=== PATIENT | female | born 1950 | race Caucasian/White ===

== ENCOUNTER 2023-02-18 07:27 | Inpatient (IN) ==
[2023-02-18] MEDS ORDERED: SODIUM CHLORIDE 0.9% 1,000 ML IV STA (07:38)
[2023-02-18] MEDS ORDERED: MoRPHine SULFATE 4 MG/ML 1 ML CARP\\VIAL IV STA (07:44)
[2023-02-18] MEDS ORDERED: ONDANSETRON INJ 2 MG/ML 2 ML VIAL IV STA (07:44)
--- NOTE | 2023-02-18 07:46 | Emergency Department Note ---
Impression & Plan Acute colitis ADMIT ED Provider Note HPI: History obtained from patient. The patient is a 72-year-old female with history of hypertension, presents emergency department chief complaint of abdominal pain, vomiting, and blood per rectum. Patient states that her symptoms began yesterday evening. Patient is visiting from out of town for the [employer] football game today. Patient states that last evening when she was sleeping in a camper she was having difficulty sleeping secondary to abdominal pain. She had an episode of bleeding per rectum at about 2 AM. Patient states she did have multiple episodes of vomiting as well. On arrival here to the ED the patient is hemodynamically stable, she appears to be in mild distress secondary to abdominal pain, she is otherwise alert and saturating well on room air. ROS: - Per HPI Differential Diagnosis: Acute colitis, diverticulitis flare, small bowel obstruction, ischemic colitis, acute appendicitis, perforated viscus, intra- abdominal abscess, lower GI hemorrhage, amongst other potential pathologies. *Outpatient medications and allergy history reviewed. 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 Lab work shows no leukocytosis, hemoglobin is normal, platelet count is normal, CMP does not show any critical findings, no evidence of acute kidney injury. Troponin is negative x1. EKG per my interpretation shows normal sinus rhythm without any acute ischemic changes. Urinalysis does not show any evidence of obvious infection. Patient denies any dysuria. CT imaging of the abdomen pelvis shows nonspecific inflammation of the transverse colon consistent with an acute colitis, infectious versus inflammatory and given location difficult to rule out ischemic colitis, per interpreting radiologist. Rectal examination performed by myself at the bedside with female RN does not show any obvious hemorrhage grossly, occult stool testing is positive. I discussed the patient's presentation with on-call general surgery, Dr. Christopher, who did evaluate the patient at the bedside. At this time he is in agreement to consult and admit the patient to the medicine service for IV antibiotics and observation until symptomatic improvement. I discussed this with the patient and her friend at the bedside. Patient is in agreement for admission at this time. Case was discussed with the on-call hospitalist, Dr. José, and the patient was placed for admission in stable condition. Consultants/Discussions held with other healthcare providers: -General surgery, Dr. Christopher -Hospitalist, Dr. José Disposition discussion held by myself with: -Patient Diagnosis: 1. Acute colitis 2. Abdominal pain, acute 3. Blood per rectum/occult positive stool Disposition: Admission Tarik Connor DO Emergency Medicine Past Med/Surg History Medical History (Updated 02/18/23 @ 11:55 by Tarik Connor DO) Personal history of DVT (deep vein thrombosis) Hypertension Arthritis Social History Feels Safe at Home: Yes Home Meds Home Medications Medication Instructions Recorded Confirmed celecoxib 200 mg capsule 200 mg PO DAILY 02/18/23 02/18/23 dicyclomine 10 mg capsule 10 mg PO QID PRN Abdominal Cramping 02/18/23 02/18/23 lisinopril 20 20 - 25 tab PO DAILY 02/18/23 02/18/23 mg-hydrochlorothiazide 25 mg tablet Results & Data (ED) Vital Signs Vital Signs - 24 hr 02/18/23 07:32 02/18/23 08:00 02/18/23 08:13 Temperature 36.4 C L Temperature Source Temporal Artery Scan Pulse Rate 82 72 62 Pulse Rate [Apical] Pulse Rhythm [Apical] Pulse Strength [Apical] Respiratory Rate 16 16 Respiratory Effort / Characteristics Non-Labored Respiratory Depth Normal Respiratory Pattern Blood Pressure 164/85 H Blood Pressure [Right Arm] Blood Pressure Mean 111 Blood Pressure Mean [Right Arm] Blood Pressure Position [Right Arm] Pulse Oximetry 96 96 Oxygen Delivery Method Room Air Room Air Sepsis Recent Fever Within 48 Hours No Sepsis New/Unexplained Change in Mental Status No Sepsis Action Taken by Nursing No Action Required 02/18/23 09:19 02/18/23 10:36 02/18/23 11:47 Temperature 36.8 C Temperature Source Oral Pulse Rate Pulse Rate [Apical] 75 81 72 Pulse Rhythm [Apical] Regular Pulse Strength [Apical] Normal Respiratory Rate 18 18 17 Respiratory Effort / Characteristics Non-Labored Spontaneous Non-Labored Spontaneous Non-Labored Spontaneous Respiratory Depth Normal Normal Normal Respiratory Pattern Regular Regular Blood Pressure Blood Pressure [Right Arm] 156/79 H 159/117 H 149/79 H Blood Pressure Mean Blood Pressure Mean [Right Arm] 104 131 102 Blood Pressure Position [Right Arm] Semi-fowlers Semi-fowlers Semi-fowlers Pulse Oximetry 99 96 96 Oxygen Delivery Method Room Air Room Air Room Air Sepsis Recent Fever Within 48 Hours Sepsis New/Unexplained Change in Mental Status Sepsis Action Taken by Nursing Laboratory Data 02/18/23 08:07 02/18/23 08:07 Lab Results 02/18/23 02/18/23 Range/Units 08:07 08:29 WBC 10.25 (4.8-10.8) K/ul RBC 4.45 (4.20-5.40) M/uL Hgb 13.6 (12.0-16.0) g/dl Hct 39.2 (37.0-47.0) % MCV 88.1 (80.0-100.0) fL MCH 30.6 (25.0-34.0) pg MCHC 34.7 (32.0-36.0) g/dL RDW Std Deviation 44.6 (36.4-46.3) fL RDW Coeff of Liz 13.8 (11.5-14.5) % Plt Count 167 (130-400) K/uL MPV 11.1 (9.4-12.4) fL Immature Gran % (Auto) 0.4 % Neut % (Auto) 83.3 % Lymph % (Auto) 9.9 % [place] % (Auto) 5.3 % Eos % (Auto) 0.8 % Baso % (Auto) 0.3 % Neut # (Auto) 8.55 H (1.40-6.50) K/uL Lymph # (Auto) 1.01 L (1.20-3.40) K/uL [place] # (Auto) 0.54 (0.11-0.59) K/uL Eos # (Auto) 0.08 (0.00-0.50) K/uL Baso # (Auto) 0.03 (0.00-0.20) K/uL Immature Gran # (Auto) 0.04 (0.01-0.20) K/uL PT 10.9 (9.0-12.0) Seconds INR 1.0 (0.9-1.1) Sodium 136 (136-145) mmol/L Potassium 3.7 (3.5-5.1) mmol/L Chloride 102 (98-107) mmol/L Carbon Dioxide 27 (21-32) mmol/L Anion Gap 7 (3-11) BUN 17 (6-23) mg/dl Creatinine 0.70 (0.6-1.2) mg/dl Est Cr Clr Drug Dosing 78.8 ml/min Est GFR ( Amer) 98.9 ml/min Est GFR (Non-Af Amer) 85.4 ml/min BUN/Creatinine Ratio 24.3 H (10-20) Glucose 126 H (70-99(Fasting)) mg/dl Calcium 9.6 (8.6-10.3) mg/dl Total Bilirubin 0.6 (0.2-1.0) mg/dl AST 17 (13-39) U/L ALT 13 (7-52) U/L Alkaline Phosphatase 55 (34-104) U/L Troponin I High Sens 3.9 (0-14) pg/ml Total Protein 6.8 (6.0-8.3) gm/dl Albumin 4.4 (3.4-5.0) gm/dl Globulin 2.4 L (2.5-4.0) gm/dl Albumin/Globulin Ratio 1.8 (0.9-2) Lipase 19 (11-82) U/L Urine Color Yellow Urine Appearance Clear (Clear) Urine pH 5.0 (4.5-7.5) Ur Specific [place] 1.020 (1.000-1.030) Urine Protein Negative (Negative) Urine Glucose (UA) Negative (Negative) Urine Ketones Negative (Negative) Urine Blood Trace H (Negative) Urine Nitrite Negative (Negative) Urine Bilirubin Negative (Negative) Urine Urobilinogen Negative (Negative) Ur Leukocyte Esterase 1+ H (Negative) Urine WBC (Auto) 1-5 (0-5) /hpf Urine RBC (Auto) 0-4 (0-4) /hpf U Hyaline Cast (Auto) 1-5 (0-5) /lpf U Epithel Cells (Auto) 20-30 H (0-5) /lpf Urine Bacteria (Auto) Negative (Negative) Blood Type A Positive Antibody Screen NEGATIVE Administered Medications Discontinued Medications Sodium Chloride (Nss) 1,000 mls @ 999 mls/hr IV .Q1H1M STA Stop: 02/18/23 08:38 Last Infusion: 02/18/23 09:11 Dose: Infused Documented By: Admin: 02/18/23 08:10 Dose: 999 mls/hr Documented By: STAN Sodium Chloride (Nss) 1,000 mls @ 999 mls/hr IV .Q1H1M ONE Stop: 02/18/23 11:18 Last Infusion: 02/18/23 11:37 Dose: Infused Documented By: Admin: 02/18/23 10:39 Dose: 999 mls/hr Documented By: STAN Metronidazole (Flagyl) 500 mg in 100 mls @ 100 mls/hr IV NOW STA; Protocol Stop: 02/18/23 11:50 Last Admin: 02/18/23 11:37 Dose: 100 mls/hr Documented By: MADDISON Ioversol (Optiray 320 100ml) 93 ml IV ONCE ONE Stop: 02/18/23 09:12 Last Admin: 02/18/23 09:11 Dose: 93 ml Documented By: GLENN Morphine Sulfate (Morphine Sulfate 4 Mg/Ml 1 Ml Carp\Vial) 4 mg IV NOW STA Stop: 02/18/23 07:45 Last Admin: 02/18/23 08:17 Dose: 4 mg Documented By: STAN Ondansetron HCl (Ondansetron Inj 2 Mg/Ml 2 Ml Vial) 4 mg IV NOW STA Stop: 02/18/23 07:45 Last Admin: 02/18/23 08:17 Dose: 4 mg Documented By: STAN Imaging Data Radiologist's Impression: Abdomen/Pelvis CT 02/18/23 07:45 CT OF THE ABDOMEN AND PELVIS WITH CONTRAST CLINICAL HISTORY: Generalized abdominal pain, diarrhea, rectal bleed. COMPARISON STUDY: None. TECHNIQUE: Following IV administration of 93 mL of Optiray, axial images of the abdomen and pelvis were obtained from the lung bases to the proximal femurs. Images were reviewed in the axial, sagittal, and coronal planes. IV contrast was administered without complication. Automated exposure control was utilized for the study. A dose lowering technique was utilized adhering to the principles of ALARA. CT DOSE: 1266.58 mGy.cm FINDINGS: Lung bases are unremarkable. No pneumatosis, free air or portal venous gas is present. The liver, spleen, adrenal glands, kidneys and pancreas are unremarkable. There is no biliary or pancreatic ductal dilatation. No hydronephrosis. No peripancreatic or pericholecystic infiltration is present. The appendix is normal. There is colonic diverticulosis without evidence for acute diverticulitis. Moderate circumferential wall thickening of the mid to distal transverse colon, the splenic flexure and descending colon is noted. There is pericolonic stranding and fluid. No free air or abscess is present. Major vasculature is patent. There is mild plaque within the abdominal aorta. There are no fluid collections. There is no lymphadenopathy. IMPRESSION: 1. Moderate circumferential wall thickening with pericolonic stranding and fluid of the mid to distal transverse colon, the splenic flexure and descending colon. No free air or abscess. This is consistent with a colitis and the distribution raises the possibility of ischemic colitis. An infectious or inflammatory etiology could appear similar. 2. Colonic diverticulosis. No evidence for acute diverticulitis. ACT 112: Negative or not required by law. Electronically signed by: Santino Celeste M.D. 02/18/2023 9:30 AM Discharge Plan Visit Data Chief Complaint: Abdominal Pain Stated Complaint: ABD PAIN ED Provider: Tarik Connor Discharge Problem: Acute colitis Forms Stand Alone Forms: [facility] Prescriptions Prescriptions: No Action celecoxib 200 mg capsule 200 mg PO DAILY lisinopril-hydrochlorothiazide 20-25 mg tablet 20 - 25 tab PO DAILY dicyclomine 10 mg capsule 10 mg PO QID PRN (Reason: Abdominal Cramping) Referrals Referrals: PCP,NO [Physician] -
[2023-02-18 08:44] LABS: Appearance Urine Clear (Clear); Bacteria Urine Automated Negative (Negative); Bilirubin Urine Negative (Negative); Blood Urine Trace (Negative); Color Urine Yellow; Epithelial Cell Urine Auto 20-30 /lpf (0-5); Glucose Urine UA Negative (Negative); Ketones Urine Negative (Negative); Leukocyte Esterase Urine 1+ (Negative); Nitrite Urine Negative (Negative); Protein Urine Negative (Negative); RBC Urine Automated 0-4 /hpf (0-4); Urobilinogen Urine Negative (Negative)
[2023-02-18 08:46] LABS: Albumin Level 4.4 gm/dl (3.4-5.0); Bilirubin,Total 0.6 mg/dl (0.2-1.0); Calcium 9.6 mg/dl (8.6-10.3); Potassium 3.7 mmol/L (3.5-5.1)
[2023-02-18 08:48] LABS: Basophils # (auto) 0.03 K/uL (0.00-0.20); Basophils % (auto) 0.3 %; Eosinophils # (auto) 0.08 K/uL (0.00-0.50); Eosinophils % (auto) 0.8 %; Hematocrit (blood only) 39.2 % (37.0-47.0); Hemoglobin 13.6 g/dl (12.0-16.0); Immature Granulocytes # (auto) 0.04 K/uL (0.01-0.20); Immature Granulocytes % (auto) 0.4 %; Lymphocytes # (auto) 1.01 K/uL (1.20-3.40); Lymphocytes % (auto) 9.9 %; Mean Corpuscular Hemoglobin 30.6 pg (25.0-34.0); Mean Corpuscular Hgb Conc 34.7 g/dL (32.0-36.0); Mean Corpuscular Volume 88.1 fL (80.0-100.0); Mean Platelet Volume 11.1 fL (9.4-12.4); Monocytes # (auto) 0.54 K/uL (0.11-0.59); Monocytes % (auto) 5.3 %; Neutrophils # (auto) 8.55 K/uL (1.40-6.50); Neutrophils % (auto) 83.3 %; Platelet Count 167 K/uL (130-400); RDW Coefficient of Variation 13.8 % (11.5-14.5); RDW Standard Deviation 44.6 fL (36.4-46.3); Red Blood Count 4.45 M/uL (4.20-5.40); White Blood Count 10.25 K/ul (4.8-10.8)
[2023-02-18 08:52] LABS: Albumin Globulin Ratio 1.8 (0.9-2); BUN Creatinine Ratio 24.3 (10-20); Creatinine Clr Calc Pharmacy 78.8 ml/min; Est GFR (African American) 98.9 ml/min; Est GFR (Non-African American) 85.4 ml/min; Globulin 2.4 gm/dl (2.5-4.0); Total Protein 6.8 gm/dl (6.0-8.3)
[2023-02-18 08:57] LABS: Troponin I High Sensitivity 3.9 pg/ml (0-14)
[2023-02-18 09:02] LABS: Prothrombin Time 10.9 Seconds (9.0-12.0)
[2023-02-18] MEDS ORDERED: OPTIRAY 320 100ml IV ONE (09:11)
--- NOTE | 2023-02-18 09:32 | CT Scan Report ---
CT OF THE ABDOMEN AND PELVIS WITH CONTRAST CLINICAL HISTORY: Generalized abdominal pain, diarrhea, rectal bleed. COMPARISON STUDY: None. TECHNIQUE: Following IV administration of 93 mL of Optiray, axial images of the abdomen and pelvis we re obtained from the lung bases to the proximal femurs. Images were reviewed in the axial, sagittal, and coronal planes. IV contrast was administered without complication. Automated exposure control wa s utilized for the study. A dose lowering technique was utilized adhering to the principles of ALARA . CT DOSE: 1266.58 mGy.cm FINDINGS: Lung bases are unremarkable. No pneumatosis, free air or portal venous gas is present. The liver, spleen, adrenal glands, kidneys and pancreas are unremarkable. There is no biliary or pancreat ic ductal dilatation. No hydronephrosis. No peripancreatic or pericholecystic infiltration is present . The appendix is normal. There is colonic diverticulosis without evidence for acute diverticulitis. Moderate circumferential wall thickening of the mid to distal transverse colon, the splenic flexure a nd descending colon is noted. There is pericolonic stranding and fluid. No free air or abscess is pre sent. Major vasculature is patent. There is mild plaque within the abdominal aorta. There are no flui d collections. There is no lymphadenopathy. IMPRESSION: 1. Moderate circumferential wall thickening with pericolonic stranding and fluid of the mid to distal transverse colon, the splenic flexure and descending colon. No free air or abscess. This is consiste nt with a colitis and the distribution raises the possibility of ischemic colitis. An infectious or i nflammatory etiology could appear similar. 2. Colonic diverticulosis. No evidence for acute diverticulitis. ACT 112: Negative or not required by law. Electronically signed by: Santino Celeste M.D. 02/18/2023 9:30 AM
[2023-02-18] MEDS ORDERED: SODIUM CHLORIDE 0.9% 1,000 ML IV ONE (10:18)
[2023-02-18] MEDS ORDERED: CIPROFLOXACIN / D5W 400 MG/200 ML BAG IV STA (10:51)
[2023-02-18] MEDS ORDERED: metroNIDAZOLE 500 MG/100 ML BAG IV STA (10:51)
--- NOTE | 2023-02-18 10:51 | History & Physical Report ---
Date of Service February 18, 2023 Assessment & Plan (1) Acute colitis: Plan: Clinically, patient endorses abdominal pain, nausea, 1 episode of vomiting, and bloody diarrhea since 02/17 Hx of divertilitis No leukocytosis Afebrile Electrolytes WNL CT ab/pelvis revealed acute colitis with the possibility of ischemic colitis; infectious/inflammatory etiology cannot be ruled out; no evidence of acute diverticulitis General surgery consulted; no surgical intervention at this time, will trial antibiotic therapy Ciprofloxacin and Flagyl started in the ED Ciprofloxacin/D5W 400 mg IV q12h Flagyl 500 mg IV q8h Keep n.p.o. for now; bowel rest Hold chemical DVT PPx in setting of bloody diarrhea; SCDs Acetaminophen 1000 mg IV q8h as needed for pain 13 Morphine sulfate 2 mg IV q2h as needed for pain 46 Morphine sulfate 4 mg IV q2h as needed for pain 7-10 Zofran 4 mg IV q6h as needed for nausea; QTc 385 Continue fluid resuscitation (LR) to cover for ischemic processes Dicyclomine 10 mg p.o. as needed for abdominal cramping Appreciate GI consult; h/o microscopic colitis, ischemic r/o Trend H&H q8h x2 A.m. 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 for now, and advance to regular diet as tolerated VTE PPx: SCDs (hold chemical DVT prophylaxis in the setting of bloody diarrhea) History of Present Illness Chief Complaint: Abdominal pain Primary Care Provider: BONNY CHERYL Roopa is a 72-year-old female without significant PMH. She presented with abdominal pain, vomiting, and blood in the rectum x1 day. Symptoms developed the evening of Saturday 02/17. She reports abdominal pain is located in the transverse lower quadrants bilaterally. She describes it as intermittent, sharp stabbing pain that feels "like knives". She rates the pain 9/. No radiation. Last BM on the morning of 02/17. 1 episode of vomiting last night at 1900 while she and her family were driving up to [employer]. She reports that they pulled over and she vomited in a [employer], and had a near syncopal episode. Patient is visiting from [place], [place] for the [employer] football game on 02/18. She started to develop GI symptoms while driving to [employer]. CT abdomen and pelvis on arrival raise concern for colitis; possibly ischemic colitis, but infectious and inflammatory etiology could not be ruled out. Patient is hypertensive at 159/117 at time of admission; vitals otherwise s table. No changes in diet. No dietary intolerance. No sick contacts. No recent injury/trauma to the abdomen or pelvis. She denies tobacco use, recreational drug use. Endorses occasional social alcohol use. She has not had nothing to eat since vomiting, but had pizza yesterday before vomiting. She has not tried tolerating liquids or solids since. Vital stable at time of admission ED course: Zofran 4 mg IV Morphine sulfate 4 mg IV NSS 1000 mL x 2 ROS: Patient endorses severe b/l lower quadrant abdominal pain, bloody diarrhea, N/V. Patient denies fever, chills, sweats, cough, hematemesis, CP, chest palpitations, SOB, back pain, saddle anesthesia, burning with urination, numbness/tingling/pain in legs, or recent injury/trauma to the abdomen. 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 (she is no longer on anticoagulation) She denies PMH of IN, CVA, cancer, diabetes, atrial fibrillation, appendectomy, cholecystectomy Emergency contacts: Heath Torres: [phone] (son) Dionne Torres: [phone] (daughter) Eladia Bautista: [phone] (son's partner / palliative care doctor) Allergies Allergy/AdvReac Type Severity Reaction Status Date / Time azithromycin Allergy Unknown Unknown Unverified 02/18/23 12:36 tetracycline Allergy Unknown Unknown Unverified 02/18/23 12:36 Penicillins Allergy Unknown Verified 02/18/23 12:37 Home Medications Medication Instructions Recorded Confirmed Type celecoxib 200 mg capsule 200 mg PO DAILY 02/18/23 02/18/23 History dicyclomine 10 mg capsule 10 mg PO QID PRN Abdominal Cramping 02/18/23 02/18/23 History lisinopril 20 20 - 25 tab PO DAILY 02/18/23 02/18/23 History mg-hydrochlorothiazide 25 mg tablet Past Med/Surg History Medical History (Updated 02/18/23 @ 11:55 by Tarik Connor DO) Personal history of DVT (deep vein thrombosis) Hypertension Arthritis Social History Smoking Status: Never smoker Second Hand Exposure: No; Do You Dip or Chew Tobacco: No; Tobacco Cessation Education Requested by Patient: No Hx Alcohol Use: Yes Alcohol type: wine Hx Substance Use: No Preferred Language: Kosovan Communication Ability: Effective Clearing Supervisor Required: No Beliefs That Will Affect Care: None Current Living Situation: Alone Other Information That Helps Us Care for You: No Feels Safe at Home: Yes Assistive Devices: None and Glasses Review of Systems Review of Systems: See HPI above Physical Exam Physical Exam: General: Patient exhibits intermittent spurts of abdominal discomfort/distress; non-toxic appearing; well-nourished; cooperative HEENT: normocephalic, atraumatic; no scleral icterus; PERRLA w/ EOMs intact; moist mucus membrane; vision and hearing grossly intact Neck: supple; no JVD; no lymphadenopathy; trachea midline Skin: warm, dry without signs of tenting; no cyanosis; no rashes, bruising, lesions, or erythema noted CV: chest wall NTP; RRR; S1/S2 normal; no murmurs/rubs/gallops; pulses intact and symmetric at radial, DP, and PT Lungs: no acute respiratory distress; symmetrical chest wall expansion; clear breath sounds across all lung ni w/o adventitious sounds; no wheezing ABD: Soft, mild pain to palpation in the RLQ and LLQ; BS present; no rebound/guarding; no ascites; no distention; negative Rovsing's sign; negative Raphael sign; tympany to percussion; no signs of bruising or internal bleeding on abdomen MSK: no tics or fasciculations; no edema noted in the LEs b/l Neuro: A&Ox3; normal mood and affect; fluent speech; CN2-12 intact; no focal deficits; sensation grossly intact Results & Data Results & Data Vital Signs (Past 12 Hours) Vital Signs Temp Pulse Pulse Resp BP BP Pulse Ox 02/18/23 10:36 81 18 159/117 H 96 02/18/23 09:19 75 18 156/79 H 99 02/18/23 08:13 62 02/18/23 08:00 72 16 96 02/18/23 07:32 36.4 C L 82 16 164/85 H 96 O2 Del Method 02/18/23 10:36 Room Air 02/18/23 09:19 Room Air 02/18/23 08:13 02/18/23 08:00 Room Air 02/18/23 07:32 Room Air Laboratory Results Abnormal lab results 02/18/23 Range/Units 08:07 Neut # (Auto) 8.55 H (1.40-6.50) K/uL Lymph # (Auto) 1.01 L (1.20-3.40) K/uL BUN/Creatinine Ratio 24.3 H (10-20) Glucose 126 H (70-99(Fasting)) mg/dl Globulin 2.4 L (2.5-4.0) gm/dl Urine Blood Trace H (Negative) Ur Leukocyte Esterase 1+ H (Negative) U Epithel Cells (Auto) 20-30 H (0-5) /lpf Diagnostic Findings Abdomen/Pelvis CT 02/18/23 07:45 CT OF THE ABDOMEN AND PELVIS WITH CONTRAST CLINICAL HISTORY: Generalized abdominal pain, diarrhea, rectal bleed. COMPARISON STUDY: None. TECHNIQUE: Following IV administration of 93 mL of Optiray, axial images of the abdomen and pelvis were obtained from the lung bases to the proximal femurs. Images were reviewed in the axial, sagittal, and coronal planes. IV contrast was administered without complication. Automated exposure control was utilized for the study. A dose lowering technique was utilized adhering to the principles of ALARA. CT DOSE: 1266.58 mGy.cm FINDINGS: Lung bases are unremarkable. No pneumatosis, free air or portal venous gas is present. The liver, spleen, adrenal glands, kidneys and pancreas are unremarkable. There is no biliary or pancreatic ductal dilatation. No hydronephrosis. No peripancreatic or pericholecystic infiltration is present. The appendix is normal. There is colonic diverticulosis without evidence for acute diverticulitis. Moderate circumferential wall thickening of the mid to distal transverse colon, the splenic flexure and descending colon is noted. There is pericolonic stranding and fluid. No free air or abscess is present. Major vasculature is patent. There is mild plaque within the abdominal aorta. There are no fluid collections. There is no lymphadenopathy. IMPRESSION: 1. Moderate circumferential wall thickening with pericolonic stranding and fluid of the mid to distal transverse colon, the splenic flexure and descending colon. No free air or abscess. This is consistent with a colitis and the distribution raises the possibility of ischemic colitis. An infectious or inflammatory etiology could appear similar. 2. Colonic diverticulosis. No evidence for acute diverticulitis. ACT 112: Negative or not required by law. Electronically signed by: Santino Celeste M.D. 02/18/2023 9:30 AM Code Status & VTE Plan Code Status Full code VTE Prophylaxis Plan VTE Prophylaxis will be ordered: Yes Supervising Physician Co-Signing Physician Notes Patient seen and examined, chart reviewed, case discussed with Josh Good PA-C and I agree with the assessment and plan as above except as otherwise noted Labs and images reviewed 71-year-old female with a history of diverticulitis, microscopic colitis in remission with last biopsy -3 weeks ago who presents from [place] for the football game and who developed worsening diarrhea x24 hours with blood overnight. CT concerning for ischemic colitis. Supportive care and fluids given. Agree with Cipro/Flagyl. No QT prolongation. Last biopsy for microscopic colitis was negative, no steroids indicated at this time. Abdomen is minimally tender at the right lower quadrant without rebound or guarding. Last episode bleeding was 1 day ago. Hemoglobin trended, currently normal, and on admit currently hemodynamically stable. Agree with assessment and management above including fluids, GI consult especially given history of microscopic colitis, and continued antibiotics PG Care Time/CCT Total # of Minutes Spent Total Time Spent with Patient: Total time spent is greater than 50% in coordination of care (as documented) at patient's floor/unit and/or counseling patient: [place] [address] INT INP/OBS CARE 3/75MIN Patient Type New History Comprehensive Exam Comprehensive Medical Decision Making High Complexity Diagnoses Acute colitis K52.9 Hypertension I10 Arthritis M19.90 Personal history of DVT (deep vein thrombosis) Z86.082
--- NOTE | 2023-02-18 10:56 | Surgery Consultation ---
Date of Consultation February 18, 2023 Assessment & Plan (1) Acute colitis: Her CT images and results were personally viewed and interpreted by myself, she does have inflammation of the colon in the watershed area of the splenic flexure which raises the suspicion of ischemic colitis She is being admitted to the hospitalist We will keep her n.p.o. and give Cipro and Flagyl as IV antibiotics No plans for any surgical intervention unless she has signs of full-thickness ischemic colitis/ bowel Would recommend a GI consult to help comanage the colitis Surgery will follow History of Present Illness Reason for Consultation: Ischemic colitis History of Present Illness This is a 72-year-old female who presented to the emergency room earlier this morning with about 24 hours of sharp generalized abdominal pain without radiation started after eating some pizza on her way to the football game. She states she had to stop it if she is to try and go to the bathroom but could not. The pain got worse and she actually had 1 episode of emesis. She was able to go to the bathroom and had diarrhea and then started with rectal bleeding around 1 AM this morning. She is originally from [place] and was up here for the gain. She did have a colonoscopy a few weeks ago to rule out microscopic colitis. Her only abdominal surgery is a hysterectomy. Patient History Social History Feels Safe at Home: Yes Review of Systems Constitutional: no fever and no chills Eyes: no blind spots and no worsening vision Ear, Nose, Mouth, Throat: no ear pain and no hearing loss Respiratory: no cough and no dyspnea Cardiovascular: no chest pain and no dyspnea on exertion Gastrointestinal: + abdominal pain, + nausea, + vomiting, + diarrhea/loose stools and + blood in stools; no constipation Genitourinary: no dysuria, no urinary hesitancy and no urinary urgency Musculoskeletal: + joint pain; no back pain and no neck p ain Integumentary: no acne, no lesions, no non-healing lesions and no changing lesions Neurologic: no gait abnormality, no paresthesia and no headache(s) Psychiatric: no behavioral changes and no depression Hematologic / Lymphatic: no easy bleeding and no easy bruising Physical Exam Constitutional: WD/WN, vitals as above Eyes: PERRL, conjunctivae normal, anicteric sclerae ENMT: external ear and nose normal, oropharynx normal Neck: trachea midline, no thyromegaly Respiratory: normal respiratory effort, lungs clear to auscultation Cardiovascular: RRR, no murmur, no edema Gastrointestinal (Abdomen): Inspection/Auscultation: abdomen normal to inspection; abdomen not distended Percussion/Palpation: + abdomen tender (left sided) and abdomen soft; no guarding, abdomen not rigid and no hernia Musculoskeletal: no cyanosis or clubbing, extremities motor strength 5/5 Skin: no rashes, warm and dry Neurologic: PERRL, EOMI, accommodation nl, no face palsy, no dysarthria Psychiatric: A+Ox3, euthymic affect Results & Data Vital Signs (Past 12 Hours) Vital Signs Temp Pulse Pulse Resp BP BP Pulse Ox 02/18/23 10:36 81 18 159/117 H 96 02/18/23 09:19 75 18 156/79 H 99 02/18/23 08:13 62 02/18/23 08:00 72 16 96 02/18/23 07:32 36.4 C L 82 16 164/85 H 96 O2 Del Method 02/18/23 10:36 Room Air 02/18/23 09:19 Room Air 02/18/23 08:13 02/18/23 08:00 Room Air 02/18/23 07:32 Room Air PG Care Time/CCT Total # of Minutes Spent Total Time Spent with Patient: Total time spent is greater than 50% in coordination of care (as documented) at patient's floor/unit and/or counseling patient: Coding Level of Care Code 77001 OP VST NEW HI 60-74 MIN Diagnoses Acute colitis K52.9
[2023-02-18] MEDS ORDERED: LISINOPRIL/HCTZ 20/25MG 1 TAB PO STA (11:32)
[2023-02-18] MEDS ORDERED: Patient's ALLERGY Info needs ENTERED STA (11:38)
[2023-02-18] MEDS ORDERED: HYDROmorphone INJ 0.5 MG/0.5 ML SYR IV STA (14:18)
[2023-02-18 15:14] LABS: Hematocrit (blood only) 36.2 % (37.0-47.0); Hemoglobin 12.3 g/dl (12.0-16.0)
[2023-02-18] MEDS ORDERED: ACETAMINOPHEN 1,000 MG/100 ML VIAL IV PRN (16:36)
[2023-02-18] MEDS ORDERED: MoRPHine SULFATE 4 MG/ML 1 ML CARP\\VIAL IV PRN (16:36)
[2023-02-18] MEDS ORDERED: NALOXONE HCL 0.4 MG/1 ML VIAL/CARP IV PRN (16:36)
[2023-02-18] MEDS ORDERED: LACTATED RINGER'S 1,000 ML IV SCH (17:00)
[2023-02-18] MEDS: ONDANSETRON INJ 2 MG/ML 2 ML VIAL IV PRN (18:29)
[2023-02-18] MEDS: metroNIDAZOLE 500 MG/100 ML BAG IV SCH (20:22)
[2023-02-18] MEDS: CIPROFLOXACIN / D5W 400 MG/200 ML BAG IV SCH (22:32)
[2023-02-18 22:51] LABS: Hematocrit (blood only) 34.4 % (37.0-47.0); Hemoglobin 11.7 g/dl (12.0-16.0)
[2023-02-18] MEDS ORDERED: Nursing to Pharmacy Communication SCH (23:30)
[2023-02-19] MEDS: metroNIDAZOLE 500 MG/100 ML BAG IV SCH ×3 (04:20→19:52)
[2023-02-19] MEDS: DICYCLOMINE HCL 10 MG CAP PO PRN (05:15)
[2023-02-19 07:01] LABS: Basophils # (auto) 0.05 K/uL (0.00-0.20); Basophils % (auto) 0.5 %; Eosinophils # (auto) 0.26 K/uL (0.00-0.50); Eosinophils % (auto) 2.6 %; Hematocrit (blood only) 34.8 % (37.0-47.0); Hemoglobin 11.8 g/dl (12.0-16.0); Immature Granulocytes # (auto) 0.03 K/uL (0.01-0.20); Immature Granulocytes % (auto) 0.3 %; Lymphocytes # (auto) 1.37 K/uL (1.20-3.40); Lymphocytes % (auto) 13.7 %; Mean Corpuscular Hemoglobin 30.7 pg (25.0-34.0); Mean Corpuscular Hgb Conc 33.9 g/dL (32.0-36.0); Mean Corpuscular Volume 90.6 fL (80.0-100.0); Mean Platelet Volume 10.8 fL (9.4-12.4); Monocytes # (auto) 0.69 K/uL (0.11-0.59); Monocytes % (auto) 6.9 %; Neutrophils # (auto) 7.59 K/uL (1.40-6.50); Platelet Count 140 K/uL (130-400); RDW Coefficient of Variation 14.3 % (11.5-14.5); RDW Standard Deviation 47.6 fL (36.4-46.3); Red Blood Count 3.84 M/uL (4.20-5.40); White Blood Count 9.99 K/ul (4.8-10.8)
[2023-02-19 07:19] LABS: BUN Creatinine Ratio 11.1 (10-20); Calcium 9.2 mg/dl (8.6-10.3); Creatinine Clr Calc Pharmacy 76.6 ml/min; Est GFR (African American) 95.6 ml/min; Est GFR (Non-African American) 82.5 ml/min; Magnesium 1.8 mg/dl (1.7-2.4); Potassium 3.5 mmol/L (3.5-5.1)
[2023-02-19] MEDS: LISINOPRIL/HCTZ 20/25MG 1 TAB PO SCH (08:07)
--- NOTE | 2023-02-19 09:23 | Gastrointestinal Consultation ---
Date of Consultation February 19, 2023 Assessment & Plan (1) Acute colitis: She has had an abrupt onset of abdominal pain, vomiting, diarrhea and then bloody stools. The differential here would include infectious enteritis or ischemic colitis. She really doesn't have risk factors for ischemic colitis o ther than age. I think most likely she has had an acute infectious enteritis and will probably improve over the next 24-48 hours. She is better now but is scared to eat anything yet. I would advance diet when she feels up to it. Having had a colonoscopy three weeks ago she does not need one now. If this were ischemic colitis observation would also be the plan and I think she would likely improve over the same time frame. History of Present Illness Reason for Consultation: colitis Attending Physician: Eula Luong MD History of Present Illness 72 year old female admitted after abrupt onset of abdominal pain, vomiting and diarrhea that evolved into bloody diarrhea on the way to the football game. She had just eaten some pizza when this started. Doesn't clearly remember what she ate before that but thinks it was half a sandwich. She didn't have fever that she is aware of. Since admit her vomiting has stopped, her pain has improved but is still present, the diarrhea has stopped and she only sees a little blood. She has never had anything like this before but she does have a history of diverticulitis. Had last colonoscopy three weeks ago "looking for microscopic colitis" but she says it and the biopsies were negative. She recently started celebrex for arthritis and takes only lisinopril/HCTZ as her other med. She has no history of heart disease. Allergies Allergy/AdvReac Type Severity Reaction Status Date / Time azithromycin Allergy Unknown Unknown Unverified 02/18/23 12:36 tetracycline Allergy Unknown Unknown Unverified 02/18/23 12:36 Penicillins Allergy Unknown Verified 02/18/23 12:37 Home Medications Medication Instructions Recorded Confirmed Type celecoxib 200 mg capsule 200 mg PO DAILY 02/18/23 02/18/23 History dicyclomine 10 mg capsule 10 mg PO QID PRN Abdominal Cramping 02/18/23 02/18/23 History lisinopril 20 20 - 25 tab PO DAILY 02/18/23 02/18/23 History mg-hydrochlorothiazide 25 mg tablet Patient History Medical History Personal history of DVT (deep vein thrombosis) Hypertension Arthritis Social History Smoking Status: Never smoker Second Hand Exposure: No; Do You Dip or Chew Tobacco: No; Tobacco Cessation Education Requested by Patient: No Hx Alcohol Use: Yes Alcohol type: wine Hx Substance Use: No Preferred Language: Telugu Communication Ability: Effective Clamshell Operator Required: No Beliefs That Will Affect Care: None Current Living Situation: Alone Other Information That Helps Us Care for You: No Feels Safe at Home: Yes Assistive Devices: None and Glasses Review of Systems Review of Systems: All systems reviewed & are unremarkable except as noted in HPI & below Physical Exam Constitutional: WD/WN, vitals as above no acute distress Eyes: PERRL, conjunctivae normal, anicteric sclerae ENMT: external ear and nose normal, oropharynx normal Neck: trachea midline, no thyromegaly Respiratory: normal respiratory effort, lungs clear to auscultation Cardiovascular: RRR, no murmur, no edema Gastrointestinal (Abdomen): Inspection/Auscultation: abdomen normal to inspection Percussion/Palpation: + abdomen tender (upper abdomen and to the left) and abdomen soft; no hepatosplenomegaly and no splenomegaly Musculoskeletal: Extremities: no cyanosis and no clubbing Skin: no rashes, warm and dry Neurologic: PERRL, EOMI, accommodation nl, no face palsy, no dysarthria Psychiatric: Orientation: alert and oriented x 3 Results & Data Vital Signs (Past 12 Hours) Vital Signs Temp Pulse Resp BP Pulse Ox O2 Del Method 02/19/23 07:07 36.8 C 73 18 111/70 95 Room Air 02/18/23 23:24 Room Air Laboratory Results 02/19/23 02/18/23 02/18/23 Range/Units 06:38 22:37 14:54 WBC 9.99 (4.8-10.8) K/ul RBC 3.84 L (4.20-5.40) M/uL Hgb 11.8 L 11.7 L 12.3 (12.0-16.0) g/dl Hct 34.8 L 34.4 L 36.2 L (37.0-47.0) % MCV 90.6 (80.0-100.0) fL MCH 30.7 (25.0-34.0) pg MCHC 33.9 (32.0-36.0) g/dL RDW Std Deviation 47.6 H (36.4-46.3) fL RDW Coeff of Liz 14.3 (11.5-14.5) % Plt Count 140 (130-400) K/uL MPV 10.8 (9.4-12.4) fL Immature Gran % (Auto) 0.3 % Neut % (Auto) 76.0 % Lymph % (Auto) 13.7 % Colbert % (Auto) 6.9 % Eos % (Auto) 2.6 % Baso % (Auto) 0.5 % Neut # (Auto) 7.59 H (1.40-6.50) K/uL Lymph # (Auto) 1.37 (1.20-3.40) K/uL Colbert # (Auto) 0.69 H (0.11-0.59) K/uL Eos # (Auto) 0.26 (0.00-0.50) K/uL Baso # (Auto) 0.05 (0.00-0.20) K/uL Immature Gran # (Auto) 0.03 (0.01-0.20) K/uL Sodium 136 (136-145) mmol/L Potassium 3.5 (3.5-5.1) mmol/L Chloride 102 (98-107) mmol/L Carbon Dioxide 29 (21-32) mmol/L Anion Gap 5 (3-11) BUN 8 (6-23) mg/dl Creatinine 0.72 (0.6-1.2) mg/dl Est Cr Clr Drug Dosing 76.6 ml/min Est GFR ( Amer) 95.6 ml/min Est GFR (Non-Af Amer) 82.5 ml/min BUN/Creatinine Ratio 11.1 (10-20) Glucose 114 H (70-99(Fasting)) mg/dl Calcium 9.2 (8.6-10.3) mg/dl Magnesium 1.8 (1.7-2.4) mg/dl Blood Type Antibody Screen 02/18/23 Range/Units 08:29 WBC (4.8-10.8) K/ul RBC (4.20-5.40) M/uL Hgb (12.0-16.0) g/dl Hct (37.0-47.0) % MCV (80.0-100.0) fL MCH (25.0-34.0) pg MCHC (32.0-36.0) g/dL RDW Std Deviation (36.4-46.3) fL RDW Coeff of Liz (11.5-14.5) % Plt Count (130-400) K/uL MPV (9.4-12.4) fL Immature Gran % (Auto) % Neut % (Auto) % Lymph % (Auto) % Colbert % (Auto) % Eos % (Auto) % Baso % (Auto) % Neut # (Auto) (1.40-6.50) K/uL Lymph # (Auto) (1.20-3.40) K/uL Colbert # (Auto) (0.11-0.59) K/uL Eos # (Auto) (0.00-0.50) K/uL Baso # (Auto) (0.00-0.20) K/uL Immature Gran # (Auto) (0.01-0.20) K/uL Sodium (136-145) mmol/L Potassium (3.5-5.1) mmol/L Chloride (98-107) mmol/L Carbon Dioxide (21-32) mmol/L Anion Gap (3-11) BUN (6-23) mg/dl Creatinine (0.6-1.2) mg/dl Est Cr Clr Drug Dosing ml/min Est GFR ( Amer) ml/min Est GFR (Non-Af Amer) ml/min BUN/Creatinine Ratio (10-20) Glucose (70-99(Fasting)) mg/dl Calcium (8.6-10.3) mg/dl Magnesium (1.7-2.4) mg/dl Blood Type A Positive Antibody Screen NEGATIVE Diagnostic Findings Abdomen/Pelvis CT 02/18/23 07:45 CT OF THE ABDOMEN AND PELVIS WITH CONTRAST CLINICAL HISTORY: Generalized abdominal pain, diarrhea, rectal bleed. COMPARISON STUDY: None. TECHNIQUE: Following IV administration of 93 mL of Optiray, axial images of the abdomen and pelvis were obtained from the lung bases to the proximal femurs. Images were reviewed in the axial, sagittal, and coronal planes. IV contrast was administered without complication. Automated exposure control was utilized for the study. A dose lowering technique was utilized adhering to the principles of ALARA. CT DOSE: 1266.58 mGy.cm FINDINGS: Lung bases are unremarkable. No pneumatosis, free air or portal venous gas is present. The liver, spleen, adrenal glands, kidneys and pancreas are unremarkable. There is no biliary or pancreatic ductal dilatation. No hydronephrosis. No peripancreatic or pericholecystic infiltration is present. The appendix is normal. There is colonic diverticulosis without evidence for acute diverticulitis. Moderate circumferential wall thickening of the mid to distal transverse colon, the splenic flexure and descending colon is noted. There is pericolonic stranding and fluid. No free air or abscess is present. Major vasculature is patent. There is mild plaque within the abdominal aorta. There are no fluid collections. There is no lymphadenopathy. IMPRESSION: 1. Moderate circumferential wall thickening with pericolonic stranding and fluid of the mid to distal transverse colon, the splenic flexure and descending colon. No free air or abscess. This is consistent with a colitis and the distribution raises the possibility of ischemic colitis. An infectious or inflammatory etiology could appear similar. 2. Colonic diverticulosis. No evidence for acute diverticulitis. ACT 112: Negative or not required by law. Electronically signed by: Santino Celeste M.D. 02/18/2023 9:30 AM
--- NOTE | 2023-02-19 10:56 | Surgery Progress Note ---
Date of Service February 19, 2023 Assessment & Plan (1) Acute colitis: Plan: She is slightly improved from yesterday No fevers or leukocytosis Can trial clear liquids We will continue to follow Admission and Anticipated Discharge Date Admission Date: February 18, 2023 Subjective Patient seen and examined. States her abdominal pain is improved but still present. Afebrile. No acute events overnight. She still having some bowel movements but they are less bloody. Review of Systems Constitutional: no fever and no chills Gastrointestinal: + abdominal pain and + blood in stools; no nausea and no vomiting Physical Exam Constitutional: WD/WN, vitals as above Eyes: PERRL, conjunctivae normal, anicteric sclerae ENMT: external ear and nose normal, oropharynx normal Neck: trachea midline, no thyromegaly Respiratory: normal respiratory effort, lungs clear to auscultation Cardiovascular: RRR, no murmur, no edema Gastrointestinal (Abdomen): Inspection/Auscultation: abdomen normal to inspection; abdomen not distended Percussion/Palpation: + abdomen tender (left sided) and abdomen soft; no guarding, abdomen not rigid and no hernia Musculoskeletal: no cyanosis or clubbing, extremities motor strength 5/5 Skin: no rashes, warm and dry Neurologic: PERRL, EOMI, accommodation nl, no face palsy, no dysarthria Psychiatric: A+Ox3, euthymic affect Results & Data Vital Signs (Past 12 Hours) Vital Signs Temp Pulse Resp BP Pulse Ox O2 Del Method 02/19/23 07:07 36.8 C 73 18 111/70 95 Room Air 02/18/23 23:24 Room Air PG Care Time/CCT Total # of Minutes Spent Total Time Spent with Patient: Total time spent is greater than 50% in coordination of care (as documented) at patient's floor/unit and/or counseling patient: Coding Level of Care Code 25026 SUB INP/OBS CARE 05/04MIN Diagnoses Acute colitis K52.9
[2023-02-19] MEDS: CIPROFLOXACIN / D5W 400 MG/200 ML BAG IV SCH ×2 (11:37→22:40)
[2023-02-19] MEDS: ONDANSETRON INJ 2 MG/ML 2 ML VIAL IV PRN ×2 (11:43→20:06)
[2023-02-19] MEDS: MoRPHine SULFATE 2 MG/ML CARP IV PRN ×2 (11:43→20:06)
--- NOTE | 2023-02-19 17:42 | Hospitalist Progress Note ---
Date of Service February 19, 2023 Assessment & Plan (1) Acute colitis: Plan: Abdominal pain, nausea, 1 episode of vomiting, and bloody diarrhea since 02/17 with hx of diverticulitis Afebrile, no leukocytosis CT ab/pelvis revealed acute colitis with the possibility of ischemic colitis; infectious/inflammatory etiology cannot be ruled out; no evidence of acute diverticulitis, ?hx of microscopici colitis Continue Ciprofloxacin and Flagyl Hold chemical DVT PPx in setting of bloody diarrhea; SCDs Acetaminophen + morphine for pain control, Zofran for nausea, dicyclomine for cramping Continue fluid resuscitation (LR) to cover for ischemic processes GI consulted: infectious enteritis vs ischemic colitis - ADAT General surgery consulted: no surgical intervention, antibiotic therapy, advanced diet to clear liquids 02/19 A.m. 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 States she still has abdominal pain but slightly improved from 1 day ago. She continues to have some blood when wiping. Nausea improving. Tolerated clear liquids at my time of evaluation. Denies any lightheadedness/dizziness, chest pain, shortness of breath. Review of Systems Review of Systems: per subjective Physical Exam Physical Exam: General: Mildly ill-appearing, NAD HEENT: Normal conjunctivae Cardiovascular: RRR, +systolic murmur Pulmonary: CTAB, no W/R/R Abdomen: Soft, diffusely tender to palpation, nondistended, no guarding or rebound tenderness Extremities: Moving all extremities, no pedal edema Integumentary: No suspicious rash or lesion on exposed skin Neurologic: AAOx3, no focal deficits Psychiatric: Appropriate mood/affect Results & Data Results & Data Vital Signs (Past 12 Hours) Vital Signs Temp Pulse Pulse Resp BP BP Pulse Ox 02/19/23 16:00 36.8 C 65 16 133/77 95 02/19/23 07:07 36.8 C 73 18 111/70 95 O2 Del Method 02/19/23 16:00 Room Air 02/19/23 07:07 Room Air Laboratory Results Reviewed CBChemoglobin 11.8, reviewed BMP and magnesiumoverall unremarkable Diagnostic Findings Blood cultures 02/18 preliminary NGTD PG Care Time/CCT Total # of Minutes Spent Total Time Spent with Patient: Total time spent is greater than 50% in coordination of care (as documented) at patient's floor/unit and/or counseling patient: Coding Level of Care Code 94437 SUB INP/OBS CARE 3/50MIN Diagnoses Acute colitis K52.9 Hypertension I10 Arthritis M19.90 Personal history of DVT (deep vein thrombosis) Z86.718 Systolic murmur R01.1
--- NOTE | 2023-02-19 19:56 | Electrocardiogram Report ---
Test Reason : Blood Pressure : / mmHG Vent. Rate : 066 BPM Atrial Rate : 066 BPM P-R Int : 136 ms QRS Dur : 078 ms QT Int : 368 ms P-R-T Axes : 027 041 -26 degrees QTc Int : 385 ms Normal sinus rhythm Nonspecific ST and T wave abnormality Abnormal ECG No previous ECGs available Confirmed by Jonathan Escoto ([id number]) on 02/19/2023 7:55:54 PM Referred By: REFERRED SELF Confirmed By:Jonathan Escoto
[2023-02-20] MEDS: metroNIDAZOLE 500 MG/100 ML BAG IV SCH ×3 (04:15→19:12)
[2023-02-20 07:31] LABS: Basophils # (auto) 0.04 K/uL (0.00-0.20); Basophils % (auto) 0.5 %; Eosinophils # (auto) 0.41 K/uL (0.00-0.50); Eosinophils % (auto) 4.7 %; Hematocrit (blood only) 34.2 % (37.0-47.0); Hemoglobin 11.8 g/dl (12.0-16.0); Immature Granulocytes # (auto) 0.03 K/uL (0.01-0.20); Immature Granulocytes % (auto) 0.3 %; Lymphocytes # (auto) 1.43 K/uL (1.20-3.40); Lymphocytes % (auto) 16.5 %; Mean Corpuscular Hemoglobin 30.1 pg (25.0-34.0); Mean Corpuscular Hgb Conc 34.5 g/dL (32.0-36.0); Mean Corpuscular Volume 87.2 fL (80.0-100.0); Mean Platelet Volume 10.6 fL (9.4-12.4); Monocytes # (auto) 0.53 K/uL (0.11-0.59); Monocytes % (auto) 6.1 %; Neutrophils # (auto) 6.25 K/uL (1.40-6.50); Neutrophils % (auto) 71.9 %; Platelet Count 155 K/uL (130-400); RDW Coefficient of Variation 14.1 % (11.5-14.5); RDW Standard Deviation 44.8 fL (36.4-46.3); Red Blood Count 3.92 M/uL (4.20-5.40); White Blood Count 8.69 K/ul (4.8-10.8)
[2023-02-20] MEDS: LISINOPRIL/HCTZ 20/25MG 1 TAB PO SCH (08:19)
[2023-02-20 08:45] LABS: Calcium 8.8 mg/dl (8.6-10.3); Creatinine Clr Calc Pharmacy 73.6 ml/min; Est GFR (Non-African American) 78.5 ml/min; Potassium 3.5 mmol/L (3.5-5.1)
[2023-02-20] MEDS: ONDANSETRON INJ 2 MG/ML 2 ML VIAL IV PRN ×2 (09:46→19:12)
[2023-02-20] MEDS: MoRPHine SULFATE 2 MG/ML CARP IV PRN ×2 (09:46→19:12)
--- NOTE | 2023-02-20 11:02 | Surgery Progress Note ---
Date of Service February 20, 2023 Assessment & Plan (1) Acute colitis: Plan: She is slowly improving She is still without tachycardia, fever or leukocytosis We will keep her on clear liquids for today Keep her on IV antibiotics for today We will reassess for advancing her diet tomorrow Admission and Anticipated Discharge Date Admission Date: February 18, 2023 Subjective Patient seen and examined. States she feels slightly better than yesterday. Is tolerating clear liquids. Review of Systems Constitutional: no fever and no chills Gastrointestinal: no abdominal pain, no bloating and no early satiety Physical Exam Constitutional: WD/WN, vitals as above Eyes: PERRL, conjunctivae normal, anicteric sclerae ENMT: external ear and nose normal, oropharynx normal Neck: trachea midline, no thyromegaly Respiratory: normal respiratory effort, lungs clear to auscultation Cardiovascular: RRR, no murmur, no edema Gastrointestinal (Abdomen): Inspection/Auscultation: abdomen normal to inspection; abdomen not distended Percussion/Palpation: + abdomen tender (left sided) and abdomen soft; no guarding, abdomen not rigid and no hernia Musculoskeletal: no cyanosis or clubbing, extremities motor strength 5/5 Skin: no rashes, warm and dry Neurologic: PERRL, EOMI, accommodation nl, no face palsy, no dysarthria Psychiatric: A+Ox3, euthymic affect Results & Data Vital Signs (Past 12 Hours) Vital Signs Temp Pulse Resp BP Pulse Ox O2 Del Method 02/20/23 07:40 37.1 C 72 18 118/73 92 Room Air PG Care Time/CCT Total # of Minutes Spent Total Time Spent with Patient: Total time spent is greater than 50% in coordination of care (as documented) at patient's floor/unit and/or counseling patient: Coding Level of Care Code 02751 SUB INP/OBS CARE 1/25MIN Diagnoses Acute colitis K52.9
[2023-02-20] MEDS: CIPROFLOXACIN / D5W 400 MG/200 ML BAG IV SCH ×2 (11:17→22:58)
--- NOTE | 2023-02-20 15:48 | Gastroenterology Progress Note ---
Date of Service February 20, 2023 Assessment & Plan (1) Acute colitis: Plan: She is slowly improving. I explained about her borborygmi and the cramping and that it is part of her healing process. For now we can only observe. Admission and Anticipated Discharge Date Admission Date: February 20, 2023 Subjective Better but not as good as she wants. Concerned about all of the noise her gut is making. Noise associated with cramping pain. Still some blood. H/H stable WBC normal Review of Systems Review of Systems: All systems reviewed & are unremarkable except as noted in Subjective Physical Exam Physical Exam: She looks well Results & Data Vital Signs (Past 12 Hours) Vital Signs Temp Pulse Resp BP Pulse Ox O2 Del Method 02/20/23 14:26 36.9 C 61 18 116/74 94 Room Air 02/20/23 07:40 37.1 C 72 18 118/73 92 Room Air
--- NOTE | 2023-02-20 17:17 | Hospitalist Progress Note ---
Date of Service February 20, 2023 Assessment & Plan (1) Acute colitis: Plan: Probably viral. Appreciate gastroenterology and surgery consultations and recommendations. Diet has been advanced to full liquids. Continue IV fluids for now. She remains on intravenous Cipro and Flagyl but no evidence of bacterial infection. Blood cultures obtained February 18 remain negative. (2) Hypertension: Plan: Mildly elevated on admission. Now improved. Continue lisinoprilHCTZ daily (3) Arthritis: Plan: Stable. Hold Celebrex for now (4) Personal history of DVT (deep vein thrombosis): Plan: Due to control, per patient. Patient with is no longer on anticoagulants. Will avoid subcutaneous heparin or Lovenox due to bloody diarrhea. Ambulation Plan Hopeful discharge to home soon Admission and Anticipated Discharge Date Admission Date: February 20, 2023 Subjective Alert and oriented. No distress. Diet has been advanced. She still has symptoms of abdominal discomfort and diarrhea. Gastroenterology entry noted. She remains on intravenous Cipro and Flagyl. She has been admitted from observation status Review of Systems 2 Review of Systems: Constitutional-no fever or chills ENT-no blurred vision, no double vision, no epistaxis, no sore throat Respiratory-no cough, no wheezing, no shortness of breath Cardiac-no palpitations, no chest pain, no syncope GI-no nausea, vomiting, melena. Occasional bouts of bloody diarrhea persist. Abdominal discomfort -no urinary retention, no urinary incontinence, no dysuria, no hematuria Musculoskeletal-no joint pain, no muscle tenderness Skin-no bruising, no rashes, no pruritus Neuro-no isolated weakness, no paresthesia, no weakness Psych-no depression, no anxiety Physical Exam 2 Physical Exam: General-alert and oriented x3, no fevers, no chills HEENT-head atraumatic and normocephalic, pupils equal and reactive to light, extraocular muscles intact Neck-no lymphadenopathy or thyromegaly, trachea midline Chest-clear to auscultation percussion. No rales wheezing or rhonchi Cardiac-regular rate and rhythm, normal S1 and S2, no murmurs Abdomen-normal bowel sounds, no hepatosplenomegaly. Diffuse mild tenderness. No masses. No rebound or guarding Extremities-no cyanosis, clubbing, or edema Neuro-cranial nerves II through XII intact, motor and sensory function within normal limits, strength symmetrical, no focal deficits Psych-normal affect, normal mood Results & Data Results & Data Vital Signs (Past 12 Hours) Vital Signs Temp Pulse Resp BP Pulse Ox O2 Del Method 02/20/23 14:26 36.9 C 61 18 116/74 94 Room Air 02/20/23 07:40 37.1 C 72 18 118/73 92 Room Air Laboratory Results 02/20/23 07:07 02/20/23 07:07 PG Care Time/CCT Total # of Minutes Spent Total Time Spent with Patient: Total time spent is greater than 50% in coordination of care (as documented) at patient's floor/unit and/or counseling patient: Coding Level of Care Code 70034 SUB INP/OBS CARE 3/50MIN Diagnoses Acute colitis K52.9 Hypertension I10 Arthritis M19.90 Personal history of DVT (deep vein thrombosis) Z86.545
[2023-02-21] MEDS: metroNIDAZOLE 500 MG/100 ML BAG IV SCH (04:43)
[2023-02-21 07:24] LABS: Basophils # (auto) 0.04 K/uL (0.00-0.20); Basophils % (auto) 0.7 %; Eosinophils # (auto) 0.53 K/uL (0.00-0.50); Hemoglobin 11.8 g/dl (12.0-16.0); Immature Granulocytes # (auto) 0.01 K/uL (0.01-0.20); Immature Granulocytes % (auto) 0.2 %; Lymphocytes # (auto) 1.23 K/uL (1.20-3.40); Lymphocytes % (auto) 20.9 %; Mean Corpuscular Hemoglobin 30.1 pg (25.0-34.0); Mean Corpuscular Hgb Conc 34.7 g/dL (32.0-36.0); Mean Corpuscular Volume 86.7 fL (80.0-100.0); Mean Platelet Volume 11.1 fL (9.4-12.4); Monocytes # (auto) 0.47 K/uL (0.11-0.59); Neutrophils % (auto) 61.2 %; Platelet Count 149 K/uL (130-400); RDW Coefficient of Variation 13.6 % (11.5-14.5); RDW Standard Deviation 42.6 fL (36.4-46.3); Red Blood Count 3.92 M/uL (4.20-5.40); White Blood Count 5.88 K/ul (4.8-10.8)
[2023-02-21 07:40] LABS: BUN Creatinine Ratio 9.2 (10-20); Calcium 9.3 mg/dl (8.6-10.3); Creatinine Clr Calc Pharmacy 72.6 ml/min; Est GFR (African American) 89.6 ml/min; Est GFR (Non-African American) 77.3 ml/min; Potassium 3.6 mmol/L (3.5-5.1)
[2023-02-21] MEDS: LISINOPRIL/HCTZ 20/25MG 1 TAB PO SCH (09:18)
--- NOTE | 2023-02-21 09:21 | Surgery Progress Note ---
Date of Service February 21, 2023 Assessment & Plan (1) Acute colitis: Plan: She is slowly improving She is still without tachycardia, fever or leukocytosis Continue to advance as tolerated to low fiber I think if she continues to progress, she will be stable for discharge tomorrow Admission and Anticipated Discharge Date Admission Date: February 20, 2023 Subjective Pt seen and examined. States her abdominal pain overall is improved. She is tolerating some full liquids but it has been making her nauseous. Afebrile. Still having some bloody BM's. Review of Systems Constitutional: no fever and no chills Physical Exam Constitutional: WD/WN, vitals as above Eyes: PERRL, conjunctivae normal, anicteric sclerae ENMT: external ear and nose normal, oropharynx normal Neck: trachea midline, no thyromegaly Respiratory: normal respiratory effort, lungs clear to auscultation Cardiovascular: RRR, no murmur, no edema Gastrointestinal (Abdomen): Inspection/Auscultation: abdomen normal to inspection; abdomen not distended Percussion/Palpation: + abdomen tender (left sided, improved from yesterday) and abdomen soft; no guarding, abdomen not rigid and no hernia Musculoskeletal: no cyanosis or clubbing, extremities motor strength 5/5 Skin: no rashes, warm and dry Neurologic: PERRL, EOMI, accommodation nl, no face palsy, no dysarthria Psychiatric: A+Ox3, euthymic affect Results & Data Vital Signs (Past 12 Hours) Vital Signs Temp Pulse Resp BP Pulse Ox O2 Del Method 02/21/23 08:07 36.6 C 59 L 16 137/75 93 Room Air PG Care Time/CCT Total # of Minutes Spent Total Time Spent with Patient: Total time spent is greater than 50% in coordination of care (as documented) at patient's floor/unit and/or counseling patient: Coding Level of Care Code 08060 SUB INP/OBS CARE 05/04MIN Diagnoses Acute colitis K52.9
[2023-02-21] MEDS: CIPROFLOXACIN / D5W 400 MG/200 ML BAG IV SCH (10:38)
[2023-02-21] MEDS: DICYCLOMINE HCL 10 MG CAP PO PRN ×2 (14:28→22:32)
[2023-02-21] MEDS ORDERED: ACETAMINOPHEN 325 MG TAB PO PRN (15:09)
--- NOTE | 2023-02-21 15:12 | Hospitalist Progress Note ---
Date of Service February 21, 2023 Assessment & Plan (1) Acute colitis: Plan: Probably viral. Appreciate gastroenterology and surgery consultations and recommendations. Diet has been advanced to full liquids. Advance further as tolerated. Antibiotics have been discontinued. Blood cultures obtained February 18 remain negative. (2) Hypertension: Plan: Mildly elevated on admission. Now improved. Continue lisinoprilHCTZ daily (3) Arthritis: Plan: Stable. Hold Celebrex for now (4) Personal history of DVT (deep vein thrombosis): Plan: Due to control remotely, per patient. Patient with is no longer on anticoagulants. Will avoid subcutaneous heparin or Lovenox due to bloody diarrhea. Ambulation Plan Hopeful discharge to home soon . The probably tomorrowFebruary 22 Admission and Anticipated Discharge Date Admission Date: February 20, 2023 Subjective Alert and oriented. Afebrile. Vital signs stable. Antibiotics have been discontinued. This appears to be a viral enteritis. Hopefully she can go home tomorrow, February 22. Review of Systems 2 Review of Systems: Constitutional-no fever or chills ENT-no blurred vision, no double vision, no epistaxis, no sore throat Respiratory-no cough, no wheezing, no shortness of breath Cardiac-no palpitations, no chest pain, no syncope GI-no nausea, vomiting, melena. Occasional bouts of bloody diarrhea persist. Abdominal discomfort -no urinary retention, no urinary incontinence, no dysuria, no hematuria Musculoskeletal-no joint pain, no muscle tenderness Skin-no bruising, no rashes, no pruritus Neuro-no isolated weakness, no paresthesia, no weakness Psych-no depression, no anxiety Physical Exam 2 Physical Exam: General-alert and oriented x3, no fevers, no chills HEENT-head atraumatic and normocephalic, pupils equal and reactive to light, extraocular muscles intact Neck-no lymphadenopathy or thyromegaly, trachea midline Chest-clear to auscultation percussion. No rales wheezing or rhonchi Cardiac-regular rate and rhythm, normal S1 and S2, no murmurs Abdomen-normal bowel sounds, no hepatosplenomegaly. Diffuse mild tenderness. No masses. No rebound or guarding Extremities-no cyanosis, clubbing, or edema Neuro-cranial nerves II through XII intact, motor and sensory function within normal limits, strength symmetrical, no focal deficits Psych-normal affect, normal mood Results & Data Results & Data Vital Signs (Past 12 Hours) Vital Signs Temp Pulse Resp BP Pulse Ox O2 Del Method 02/21/23 13:57 36.7 C 61 14 123/75 96 Room Air 02/21/23 11:19 36.4 C 67 14 145/78 H 96 Room Air 02/21/23 08:07 36.6 C 59 L 16 137/75 93 Room Air Laboratory Results 02/21/23 06:57 02/21/23 06:57 PG Care Time/CCT Total # of Minutes Spent Total Time Spent with Patient: Total time spent is greater than 50% in coordination of care (as documented) at patient's floor/unit and/or counseling patient: Coding Level of Care Code 81644 SUB INP/OBS CARE 2/35MIN Diagnoses Acute colitis K52.9 Hypertension I10 Arthritis M19.90 Personal history of DVT (deep vein thrombosis) Z86.718
--- NOTE | 2023-02-21 16:39 | Gastroenterology Progress Note ---
Date of Service February 21, 2023 Assessment & Plan (1) Acute colitis: Plan: Doing well. Okay with me to go home. I told her not to worry about the bleeding but if still bleeding in six weeks or so may need to consider colonoscopy then Admission and Anticipated Discharge Date Admission Date: February 20, 2023 Subjective Feeling well. Not much pain. Still a little bleeding Physical Exam Physical Exam: She looks well Constitutional: WD/WN, vitals as above Results & Data Vital Signs (Past 12 Hours) Vital Signs Temp Pulse Resp BP Pulse Ox O2 Del Method 02/21/23 13:57 36.7 C 61 14 123/75 96 Room Air 02/21/23 11:19 36.4 C 67 14 145/78 H 96 Room Air 02/21/23 08:07 36.6 C 59 L 16 137/75 93 Room Air
--- NOTE | 2023-02-22 08:01 | Surgery Progress Note ---
Date of Service February 22, 2023 Assessment & Plan (1) Acute colitis: Plan: Patient reports minimal abdominal discomfort Last BM yesterday evening Still having small amount of bleeding VSS Abdomen TTP in LUQ, LLQ, soft nondistended mild nausea, Will advance to low fiber Requesting to go home today, would like copy of chart to take to primary PCP Admission and Anticipated Discharge Date Admission Date: February 20, 2023 Supervising Physician Co-Signing Physician Notes I personally saw and evaluated the patient with Miguelito HARRIS and agree with the assessment and plan 72 yo with ischemic/inflammatory/infectious colitis, improving She has tolerated low fiber diet and much improved She can be discharged home from a surgical standpoint She will follow up with GI as an outpatient Surgery will sign off at this time, please call with any questions or concerns Subjective Patient reports minimal abdominal discomfort Last bm yesterday evening Still having small amount of bleeding Review of Systems Constitutional: + fever Respiratory: no dyspnea Cardiovascular: no chest pain Gastrointestinal: + abdominal pain (mild) and + nausea (mi ld); no vomiting Genitourinary: no problem reported Musculoskeletal: no problem reported Physical Exam Physical Exam: alert oriented Constitutional: well nourished, cooperative and comfortable; no acute distress Respiratory: normal respiratory effort and able to speak in complete sentences; no respiratory distress Cardiovascular: Rate/Rhythm: + bradycardic (59) Gastrointestinal (Abdomen): Inspection/Auscultation: abdomen normal to inspection; abdomen not distended Percussion/Palpation: + abdomen tender (TTP LUQ, LLQ ) and abdomen soft; abdomen not rigid Musculoskeletal: no cyanosis or clubbing, extremities motor strength 5/5 Results & Data Vital Signs (Past 12 Hours) Vital Signs Temp Pulse Resp BP Pulse Ox O2 Del Method 02/22/23 07:49 98.4 F 59 L 18 133/75 96 Room Air 02/21/23 19:53 98.1 F 61 16 101/64 94 Room Air PG Care Time/CCT Total # of Minutes Spent Total Time Spent with Patient: Total time spent is greater than 50% in coordination of care (as documented) at patient's floor/unit and/or counseling patient: Coding Level of Care Code 09140 SUB INP/OBS CARE 1/25MIN Diagnoses Acute colitis K52.9
[2023-02-22] MEDS: LISINOPRIL/HCTZ 20/25MG 1 TAB PO SCH (08:45)
[2023-02-22] MEDS: DICYCLOMINE HCL 10 MG CAP PO PRN (12:23)
--- NOTE | 2023-02-22 12:51 | Discharge Summary ---
Date of Service February 22, 2023 Admission HPI Per Admitting Provider Roopa is a 72-year-old female without significant PMH. She presented with abdominal pain, vomiting, and blood in the rectum x1 day. Symptoms developed the evening of Saturday 02/17. She reports abdominal pain is located in the transverse lower quadrants bilaterally. She describes it as intermittent, sharp stabbing pain that feels "like knives". She rates the pain 12/18. No radiation. Last BM on the morning of 02/17. 1 episode of vomiting last night at 1900 while she and her family were driving up to [place]. She reports that they pulled over and she vomited in a [employer], and had a near syncopal episode. Patient is visiting from [place], [place] for the [employer] football game on 02/18. She started to develop GI symptoms while driving to [place]. CT abdomen and pelvis on arrival raise concern for colitis; possibly ischemic colitis, but infectious and inflammatory etiology could not be ruled out. Patient is hypertensive at 159/117 at time of admission; vitals otherwise stable. No changes in diet. No dietary intolerance. No sick contacts. No recent injury/trauma to the abdomen or pelvis. She denies tobacco use, recreational drug use. Endorses occasional social alcohol use. She has not had nothing to eat since vomiting, but had pizza yesterday before vomiting. She has not tried tolerating liquids or solids since. Vital stable at time of admission ED course: Zofran 4 mg IV Morphine sulfate 4 mg IV NSS 1000 mL x 2 ROS: Patient endorses severe b/l lower quadrant abdominal pain, bloody diarrhea, N/V. Patient denies fever, chills, sweats, cough, hematemesis, CP, chest palpitations, SOB, back pain, saddle anesthesia, burning with urination, numbness/tingling/pain in legs, or recent injury/trauma to the abdomen. 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 (she is no longer on antico agulation) She denies PMH of IA, CVA, cancer, diabetes, atrial fibrillation, appendectomy, cholecystectomy Emergency contacts: Heath Torres: [phone] (son) Dionne Torres: [phone] (daughter) Eladia Bautista: [phone] (son's partner / palliative care doctor) Principal Diagnosis Viral enteritis Discharge Exam General-alert and oriented x3, no fevers, no chills HEENT-head atraumatic and normocephalic, pupils equal and reactive to light, extraocular muscles intact Neck-no lymphadenopathy or thyromegaly, trachea midline Chest-clear to auscultation percussion. No rales wheezing or rhonchi Cardiac-regular rate and rhythm, normal S1 and S2, no murmurs Abdomen-normal bowel sounds, no hepatosplenomegaly. Diffuse mild tenderness. No masses. No rebound or guarding Extremities-no cyanosis, clubbing, or edema Neuro-cranial nerves II through XII intact, motor and sensory function within normal limits, strength symmetrical, no focal deficits Psych-normal affect, normal mood Discharge Data Allergies Allergy/AdvReac Type Severity Reaction Status Date / Time azithromycin Allergy Unknown Unknown Unverified 02/18/23 12:36 tetracycline Allergy Unknown Unknown Unverified 02/18/23 12:36 Penicillins Allergy Unknown Verified 02/18/23 12:37 Consultations 02/18/23 10:49 Consult General Surgery Routine 02/18/23 10:52 ED Decision to Admit Stat 02/18/23 12:21 Consult Gastroenterology Routine Ordered Studies 02/18/23 07:45 CT Abd and Pelvis [CT abd pelvis IV con only] Stat Hospital Course (1) Acute colitis: Suspected viral etiology. Improved. Appreciate gastroenterology and surgery consultations and recommendations. Diet has been advanced. Antibiotics have been discontinued. Blood cultures obtained February 18 remain negative. (2) Hypertension: Mildly elevated on admission. Now improved. Continue lisinoprilHCTZ daily (3) Arthritis: Stable. Hold Celebrex for now. Will restart when symptoms completely johnnie (4) Personal history of DVT (deep vein thrombosis): Due to control remotely, per patient. Patient with is no longer on anticoagulants. Will avoid subcutaneous heparin or Lovenox due to bloody diarr hea. Ambulation Plan Home today, February 22 Total Time Total Time Spent Total Time Spent (In Minutes): 40-minute Discharge Plan Discharge Items Patient Disposition: Home - Self-Care Reason For Visit: ACUTE COLITIS Discharge Diagnosis: Viral enteritis Activity: Resume your previous activity Non-emergency contact: Primary Care Provider Call non-emergency contact if: your symptoms worsen Follow-up/Referrals: Hanna Jones MD [Primary Care Provider] - Diet: Regular and Heart Healthy Addtl Attending Provider Instructions: No new medications at this time Pending Studies at Discharge: No Stand-Alone Forms: My [facility] [place], Smoking Cessation Medications and DC Order Prescriptions: Continued celecoxib 200 mg capsule 200 mg PO DAILY lisinopril-hydrochlorothiazide 20-25 mg tablet 20 - 25 tab PO DAILY dicyclomine 10 mg capsule 10 mg PO QID PRN (Reason: Abdominal Cramping) Discharge Orders: Discharge Order (Routine); Ordered 02/22/23 Ordered By: Ronn Encarnacion Admission Data Admit Date/Time: 02/20/23 11:24 Attending Provider: Ronn Encarnacion Admit Provider: William José Primary Care Provider: Hanna Jones Other Providers: Chuy Christopher; Wliliam José; Imtiaz Worthy Jr; Ronn Encarnacion Coding Level of Care Code 45388 INP/OBS DISCH >30 MIN Diagnoses Acute colitis K52.9 Hypertension I10 Arthritis M19.90 Personal history of DVT (deep vein thrombosis) Z86.718
== END 2023-02-22 14:09 | disposition home or self-care (01) | DRG 392 ==
LOC: EDINP 07:27 → ED 07:27 → SUATTDRO 11:44 → EDINP 16:26 → 3N 16:36